=== PATIENT | male | born 1945 | race Caucasian/White ===

== ENCOUNTER → 2017-02-03 | Outpatient (CLI) | payer MEDICARE ==
[~2017-02-03] MED LIST: ASPI-515 PO; AZIT250T89 PO; CARV6.252 PO; CERT400S IM; CHOLACOL PO; DOXE25CA PO; GABA300C10 PO; HYDROCODONE PO; LOSA100T6 PO; METH750T87 PO; METH80VI IM; MULT-516 PO; OCULAR NUTRITION PO; OXYC-229 PO; PANT40TA5 PO; SUPPORT PO; TESTRON PO; VIT D PO; ZOLP10TA5 PO; [UNRECOGNIZED DRUG - OTHER] PO; [UNRECOGNIZED DRUG - OTHER] PO
== END | disposition home or self-care (01) ==
LOC: CFH 13:35
PROVIDERS: ATTEND Internal Medicine
DX: J84.10 Pulmonary fibrosis, unspecified (principal); J98.4 Other disorders of lung; M47.894 Other spondylosis, thoracic region; Z92.25 Personal history of immunosuppression therapy
CPT/HCPCS: 71020

== ENCOUNTER → 2017-04-16 | Outpatient (CLI) | payer MEDICARE | END | disposition home or self-care (01) | LOC: CFH 16:05 | PROVIDERS: ATTEND Internal Medicine | DX: M25.461 Effusion, right knee (principal); M22.41 Chondromalacia patellae, right knee ==

== ENCOUNTER 2017-08-14 19:44 | Inpatient (IN) | payer MEDICARE ==
[~2017-08-14] VITALS: Ht 185.4 cm; Wt 90.0 kg
[~2017-08-14 19:44] MED LIST changes: -ASPI-496 PO; -ATOR20TA9 PO; -CARV3.122 PO; -HYDR-3245 PO; -IRBE150T25 PO; -OMNIPAQUE 350 MG/ML, 100ML BOTTLE ONE; -PRED20TA PO; -RIVA15TA PO; -UBID100C41 PO
[2017-08-14] MEDS ORDERED: SODIUM CHLORIDE FLUSH 10ML SYR IVF ONE (20:00)
[2017-08-14 20:16] LABS: HEMATOCRIT 44.4 % (39.2-51.8); HEMOGLOBIN 15.4 g/dL (13.7-18.0); WHITE BLOOD COUNT 14.6 x10^3/uL (3.4-10)
[2017-08-14 20:25] LABS: BLOOD UREA NITROGEN 16 mg/dL (7-18)
[2017-08-14] MEDS ORDERED: HEPARIN 25,000 UNITS/500ML PMX 500 ML IV PRN ×2 (20:30→23:45)
[2017-08-14] MEDS ORDERED: HEPARIN 5,000 UNITS/ML, 1ML IV ONE (20:30)
[2017-08-14] MEDS ORDERED: HEPARIN 5,000 UNITS/ML, 1ML IV PRN ×2 (20:30→23:45)
[2017-08-14 20:31] LABS: IS PT STATUS REG ER OR PRE ER? YES
[2017-08-14] MEDS ORDERED: ZOLPIDEM 10MG TABLET PO SCH (21:00)
[2017-08-14] MEDS ORDERED: HYDROmorphone 1 MG/ML, 1ML IV ONE (21:30)
[2017-08-14] MEDS ORDERED: ZOLP10TA5 PO (21:51)
[2017-08-14] MEDS ORDERED: MULT-516 PO (21:51)
[2017-08-14] MEDS ORDERED: ATOR20TA9 PO (21:51)
[2017-08-14] MEDS ORDERED: GABA300C10 PO (21:51)
[2017-08-14] MEDS ORDERED: IRBE150T25 PO (21:51)
[2017-08-14] MEDS ORDERED: UBID100C41 PO (21:51)
[2017-08-14] MEDS ORDERED: PRED20TA PO (21:51)
[2017-08-14] MEDS ORDERED: PANT40TA5 PO (21:51)
[2017-08-14] MEDS ORDERED: CARV3.122 PO (21:51)
[2017-08-14] MEDS ORDERED: ASPI-496 PO (21:51)
[2017-08-14] MEDS ORDERED: HYDR-3245 PO (21:51)
[2017-08-14] MEDS ORDERED: LORazepam 2 MG/ML, 1ML IVPush PRN (22:00)
[2017-08-14] MEDS ORDERED: ONDANSETRON 2MG/ML, 2ML IVPush PRN (22:00)
[2017-08-14] MEDS ORDERED: hydrALAzine 20 MG/ML, 1ML IVPush PRN (22:00)
[2017-08-14] MEDS ORDERED: ACETAMINOPHEN 325 MG TABLET PO PRN (22:00)
[2017-08-14] MEDS ORDERED: HYDROmorphone 2 MG/ML, 1ML IVPush PRN (22:00)
[2017-08-14] MEDS ORDERED: HYDROmorphone 1 MG/ML, 1ML ONE (22:07)
[2017-08-14] MEDS ORDERED: HEPARIN 5,000 UNITS/ML, 1ML ONE (22:18)
[2017-08-14] MEDS ORDERED: HEPARIN 25,000 UNITS/500ML PMX 500 ML ONE (22:19)
[2017-08-15] MEDS: HYDROcodone/APAP 5/325 TABLET PO PRN ×5 (00:04→18:48)
[2017-08-15 00:07] VITALS: BP 175/88
[2017-08-15 00:15] VITALS: BP 159/86
[2017-08-15 01:04] VITALS: BP 151/79
[2017-08-15 05:22] LABS: HEMATOCRIT 41.1 % (39.2-51.8); HEMOGLOBIN 13.8 g/dL (13.7-18.0); WHITE BLOOD COUNT 10.3 x10^3/uL (3.4-10)
[2017-08-15] MEDS ORDERED: HYDROcodone/APAP 10/325 MG TABLET PO SCH (06:00)
[2017-08-15 06:56] VITALS: BP 130/75
[2017-08-15] MEDS ORDERED: MULTIVITAMIN 1 TABLET PO SCH (09:00)
[2017-08-15] MEDS ORDERED: GABAPENTIN 300 MG CAPSULE PO SCH (09:00)
[2017-08-15] MEDS ORDERED: IRBESARTAN 150 MG TABLET PO SCH (09:00)
[2017-08-15] MEDS: CARVEDILOL 3.125 MG TABLET PO SCH ×2 (09:48→20:19)
[2017-08-15] MEDS: FAMOTIDINE 20 MG/2 ML IVPush SCH ×2 (09:49→20:19)
[2017-08-15 14:47] VITALS: BP 108/56
[2017-08-15] MEDS ORDERED: RIVA15TA PO (19:29)
[2017-08-15] MEDS ORDERED: RIVAROXABAN 15 MG TABLET PO SCH (19:30)
[2017-08-15 20:16] VITALS: BP 138/68
[2017-08-15] MEDS ORDERED: PANTOPROZOLE 40MG TABLET PO SCH (21:00)
[2017-08-15] MEDS ORDERED: ATORVASTATIN 20 MG TABLET PO SCH (21:00)
[2017-08-15] MEDS ORDERED: ZOLPIDEM 10MG TABLET PO SCH (21:00)
== END 2017-08-15 20:30 | disposition home or self-care (01) | DRG 176 ==
LOC: ED 21:50 → EDIP 22:00 → 4NOR 23:20
PROVIDERS: ADMIT Family Medicine; ATTEND Family Medicine
DX: I26.99 Other pulmonary embolism without acute cor pulmonale (principal); D68.69 Other thrombophilia; M06.9 Rheumatoid arthritis, unspecified; M54.9 Dorsalgia, unspecified; G89.29 Other chronic pain; N40.0 Benign prostatic hyperplasia without lower urinary tract symptoms; E78.5 Hyperlipidemia, unspecified; I10 Essential (primary) hypertension; I25.10 Atherosclerotic heart disease of native coronary artery without angina pectoris; I25.2 Old myocardial infarction; Z95.5 Presence of coronary angioplasty implant and graft; Z88.0 Allergy status to penicillin; Z88.2 Allergy status to sulfonamides; Z88.1 Allergy status to other antibiotic agents; Z88.5 Allergy status to narcotic agent; Z91.048 Other nonmedicinal substance allergy status; M08.20 Juvenile rheumatoid arthritis with systemic onset, unspecified site
CPT/HCPCS: 36415; 80048; 82040; 83880; 84484; 85025; 85520; 85610; 93005; 93970; 96374; 96375; J1170; J1644; J7512; S0028

== ENCOUNTER → 2017-08-14 | Outpatient (CLI) | payer MEDICARE ==
[~2017-08-14] MED LIST changes: +ASPI-496 PO; +ATOR20TA9 PO; +CARV3.122 PO; +HYDR-3245 PO; +IRBE150T25 PO; +OMNIPAQUE 350 MG/ML, 100ML BOTTLE ONE; -OXYC-229 PO; +OXYC-307 PO; +PRED20TA PO; +RIVA15TA PO; +UBID100C41 PO
== END | disposition home or self-care (01) ==
LOC: RAD 14:03
PROVIDERS: ATTEND Internal Medicine
DX: R07.9 Chest pain, unspecified (principal)
CPT/HCPCS: 71275; Q9967

== ENCOUNTER 2017-11-02 15:04 | Emergency (ER) | payer MEDICARE ==
[~2017-11-02] VITALS: Ht 185.4 cm; Wt 99.1 kg
[~2017-11-02 15:04] MED LIST changes: +ASPI-496 PO; +ATOR20TA9 PO; +CARV3.122 PO; +HYDR-3245 PO; +IRBE150T25 PO; +PRED20TA PO; +RIVA15TA PO; +UBID100C41 PO
[2017-11-02] MEDS ORDERED: ASPIRIN 81 MG TABLET CHEW PO ONE (15:30)
[2017-11-02] MEDS ORDERED: SODIUM CHLORIDE FLUSH 10ML SYR IVF ONE (15:30)
[2017-11-02 15:55] LABS: MEAN CORPUSCULAR HEMOGLOBIN 30.2 pg (27.5-34.5); MEAN CORPUSCULAR HGB CONC 33.8 g/dL (33.2-36.2); MEAN CORPUSCULAR VOLUME 89.3 fL (81-97); MEAN PLATELET VOLUME 6.8 fL (7.4-10.4); PLATELET COUNT 319 x10^3/uL (130-400); RED BLOOD COUNT 4.71 x10^6/uL (4.38-5.82); RED CELL DISTRIBUTION WIDTH 15.7 % (9.4-14.8)
[2017-11-02 16:06] LABS: ALANINE AMINOTRANSFERASE 86 U/L (12-78); ANION GAP 12 mmol/L (5-15); CALCIUM 7.8 mg/dL (8.5-10.1); CHLORIDE 101 mmol/L (98-107); CREATININE 1.32 mg/dL (0.7-1.3)
[2017-11-02 16:11] LABS: ALKALINE PHOSPHATASE 89 U/L (45-117); BILIRUBIN,TOTAL 1.1 mg/dL (0.2-1.0); TOTAL PROTEIN 6.4 g/dL (6.4-8.2); TROPONIN I < 0.015 ng/mL (0.000-0.045)
[2017-11-02] MEDS ORDERED: DEXA0.5T PO (16:25)
[2017-11-02] MEDS ORDERED: ALBU18HF INH (16:28)
[2017-11-02 16:30] LABS: MD YES
[2017-11-02 16:31] LABS: BAND#(MANUAL) 0.71 x10^3/uL; BANDS%(MANUAL) 4 % (0-7); LYMPH#(MANUAL) 1.95 x10^3/uL (1-3.4); LYMPHS% (MANUAL) 11 % (22-44); METAMYELOCYTES# (MANUAL) 0.18 x10^3/uL (0-0); METAMYELOCYTES% (MANUAL) 1 % (0-1); MONOS#(MANUAL) 1.24 x10^3/uL (0.3-2.7); MONOS% (MANUAL) 7 % (2-9); SEG#(MANUAL) 13.63 x10^3/uL (1.8-6.8); SEGS% (MANUAL) 77 % (42-75)
[2017-11-02 16:33] LABS: <PLATELET ESTIMATE> ADEQUATE; <PLT MORPHOLOGY> NORMAL PLT MORPH; <RBC MORPHOLOGY> NORMAL
[2017-11-02 16:34] LABS: TOXIC GRAN 1+
[2017-11-02] MEDS ORDERED: ASPIRIN 81 MG TABLET CHEW ONE (16:39)
[2017-11-02 17:38] LABS: MICROSCOPIC NOT IND
[2017-11-02 17:41] LABS: CULTURE INDICATED? NO
[2017-11-02 18:55] VITALS: BP 125/65
== END 2017-11-02 18:57 | disposition home or self-care (01) ==
LOC: ED 16:19
DX: R07.89 Other chest pain (principal); T38.0X5A Adverse effect of glucocorticoids and synthetic analogues, initial encounter; R60.0 Localized edema; I25.2 Old myocardial infarction; I10 Essential (primary) hypertension; Z95.5 Presence of coronary angioplasty implant and graft
CPT/HCPCS: 36415; 71045; 76700; 80053; 81003; 83880; 84484; 85025; 93005; 99285

== ENCOUNTER 2017-11-04 08:57 | Emergency (ER) | payer MEDICARE ==
[~2017-11-04] VITALS: Ht 185.4 cm; Wt 95.9 kg
[~2017-11-04 08:57] MED LIST changes: +ALBU18HF INH; +DEXA0.5T PO
[2017-11-04] MEDS ORDERED: SODIUM CHLORIDE FLUSH 10ML SYR IVF ONE (09:30)
[2017-11-04 09:31] LABS: MEAN CORPUSCULAR HEMOGLOBIN 30.3 pg (27.5-34.5); MEAN CORPUSCULAR VOLUME 89.3 fL (81-97); MEAN PLATELET VOLUME 6.3 fL (7.4-10.4); PLATELET COUNT 246 x10^3/uL (130-400); RED BLOOD COUNT 5.15 x10^6/uL (4.38-5.82); RED CELL DISTRIBUTION WIDTH 15.8 % (9.4-14.8)
[2017-11-04 09:44] LABS: ALANINE AMINOTRANSFERASE 102 U/L (12-78); ALBUMIN 3.1 g/dL (3.4-5.0); ANION GAP 10 mmol/L (5-15); CALCIUM 7.6 mg/dL (8.5-10.1); CHLORIDE 98 mmol/L (98-107); CREATININE 1.11 mg/dL (0.7-1.3)
[2017-11-04 09:48] LABS: ALKALINE PHOSPHATASE 91 U/L (45-117); BILIRUBIN,TOTAL 1.9 mg/dL (0.2-1.0); TOTAL PROTEIN 6.7 g/dL (6.4-8.2); TROPONIN I < 0.015 ng/mL (0.000-0.045)
[2017-11-04 09:52] LABS: BASOPHILS # (AUTO) 0.02 x10^3/uL (0-0.1); BASOPHILS % (AUTO) 0 % (0-1); EOSINOPHILS # (AUTO) 0.26 x10^3/uL (0-0.4); EOSINOPHILS % (AUTO) 2 % (1-7); LYMPHOCYTES # (AUTO) 1.92 x10^3/uL (1-3.4); LYMPHOCYTES % (AUTO) 17 % (22-44); MD SCAN; MONOCYTES # (AUTO) 1.17 x10^3/uL (0.2-0.8); MONOCYTES % (AUTO) 10 % (2-9); NEUTROPHILS # (AUTO) 8.24 x10^3/uL (1.8-6.8); NEUTROPHILS % (AUTO) 71 % (42-75)
[2017-11-04] MEDS ORDERED: methylPREDNISolone SOD SUCC 125 MG/2 ML IVPush SCH (10:30)
[2017-11-04] MEDS ORDERED: CALCIUM CARBONATE 500 MG TABLET PO SCH (10:30)
[2017-11-04] MEDS ORDERED: methylPREDNISolone SOD SUCC 125 MG/2 ML ONE (11:29)
[2017-11-04 12:11] VITALS: BP 115/61
== END 2017-11-04 12:36 | disposition home or self-care (01) ==
LOC: ED 09:29
DX: R06.00 Dyspnea, unspecified (principal); M06.9 Rheumatoid arthritis, unspecified; I11.0 Hypertensive heart disease with heart failure; I48.91 Unspecified atrial fibrillation; I25.2 Old myocardial infarction; Z95.5 Presence of coronary angioplasty implant and graft
CPT/HCPCS: 36415; 71045; 80053; 83880; 84484; 85025; 93005; 96374; 99285; J2930

== ENCOUNTER → 2017-11-16 | Outpatient (CLI) | payer MEDICARE ==
[~2017-11-16] MED LIST changes: +OMNIPAQUE 350 MG/ML, 100ML BOTTLE ONE
== END | disposition home or self-care (01) ==
LOC: CFH 13:02
PROVIDERS: ATTEND Internal Medicine
DX: J98.11 Atelectasis (principal); Z90.49 Acquired absence of other specified parts of digestive tract; Z86.711 Personal history of pulmonary embolism
CPT/HCPCS: 71275; Q9967

== ENCOUNTER 2017-12-22 08:29 | Day surgery (SDC) | payer MEDICARE ==
[~2017-12-22] VITALS: Ht 185.4 cm; Wt 92.7 kg
[~2017-12-22 08:29] MED LIST changes: -OMNIPAQUE 350 MG/ML, 100ML BOTTLE ONE
[2017-12-22] MEDS ORDERED: SODIUM CHLORIDE 0.9% 1,000 ML IV ONE (08:43)
[2017-12-22 08:48] VITALS: BP 153/89
[2017-12-22] MEDS ORDERED: DIPHENHYDRAMINE 50 MG/ML, 1ML IVPush ONE (09:00)
[2017-12-22] MEDS ORDERED: DEXL60CA2 PO (09:10)
[2017-12-22] MEDS ORDERED: IRBE1TAB37 PO (09:10)
[2017-12-22] MEDS ORDERED: METH80VI IM (09:10)
[2017-12-22] MEDS ORDERED: ASPI-621 PO (09:13)
[2017-12-22] MEDS ORDERED: DIPHENHYDRAMINE 50 MG/ML, 1ML ONE (09:22)
[2017-12-22 09:29] LABS: ANION GAP 9 mmol/L (5-15); CALCIUM 8.4 mg/dL (8.5-10.1); CHLORIDE 105 mmol/L (98-107); CREATININE 0.97 mg/dL (0.7-1.3)
[2017-12-22] MEDS ORDERED: FENTANYL PF 100 MCG/2ML ONE ×2 (09:29→10:39)
[2017-12-22] MEDS ORDERED: FENTANYL PF 100 MCG/2ML IVPush PRN (09:30)
[2017-12-22] MEDS ORDERED: LIDOCAINE 2%, 20ML ONE (10:39)
[2017-12-22] MEDS ORDERED: MIDAZOLAM 1 MG/ML, 5ML ONE (10:39)
[2017-12-22] MEDS ORDERED: HEPARIN 1,000 UNITS/ML, 10ML ONE (10:44)
[2017-12-22] MEDS ORDERED: BIVALIRUDIN 250 MG ONE (10:44)
[2017-12-22] MEDS ORDERED: NITROGLYCERIN 5 MG/ML, 10ML ONE (10:44)
[2017-12-22] MEDS ORDERED: VERAPAMIL 2.5 MG/ML, 2ML ONE (10:45)
[2017-12-22] MEDS ORDERED: SODIUM CHLORIDE 0.9% 1,000 ML IV SCH (11:33)
[2017-12-22] MEDS ORDERED: HYDROcodone/APAP 5/325 TABLET PO PRN (12:30)
== END 2017-12-22 16:08 | disposition home or self-care (01) ==
LOC: CACL 08:29 → 5SO 11:38 → CACL 16:08
PROVIDERS: ATTEND Internal Medicine Cardiovascular Disease
DX: R93.1 Abnormal findings on diagnostic imaging of heart and coronary circulation (principal); I10 Essential (primary) hypertension; E78.5 Hyperlipidemia, unspecified; I25.10 Atherosclerotic heart disease of native coronary artery without angina pectoris; K21.9 Gastro-esophageal reflux disease without esophagitis; Z79.82 Long term (current) use of aspirin; Z88.6 Allergy status to analgesic agent; Z88.1 Allergy status to other antibiotic agents; Z88.0 Allergy status to penicillin; Z88.8 Allergy status to other drugs, medicaments and biological substances
CPT/HCPCS: 36415; 80048; 93454; 99156; C1894; J1200; J1644; J2250; J3010; J3490; Q9967; J0583

== ENCOUNTER → 2018-01-18 | Outpatient (CLI) | payer MEDICARE ==
[~2018-01-18] MED LIST changes: +ASPI-621 PO; +DEXL60CA2 PO; +IRBE1TAB37 PO
== END | disposition home or self-care (01) ==
LOC: CFH 15:16
PROVIDERS: ATTEND Internal Medicine
DX: R07.82 Intercostal pain (principal)

== ENCOUNTER → 2018-02-25 | Outpatient (CLI) | payer MEDICARE ==
[~2018-02-25] MED LIST changes: +OMNIPAQUE 350 MG/ML, 100ML BOTTLE ONE
[2018-02-25 14:50] LABS: CREATININE 1.12 mg/dL (0.7-1.3)
== END | disposition home or self-care (01) ==
LOC: RAD 14:11
PROVIDERS: ATTEND Internal Medicine
DX: R10.9 Unspecified abdominal pain (principal); Z87.19 Personal history of other diseases of the digestive system
CPT/HCPCS: 36415; 74170; 82565; Q9967

== ENCOUNTER 2019-08-23 09:32 | Emergency (ER) | payer MEDICARE ==
[~2019-08-23] VITALS: Ht 185.4 cm; Wt 83.1 kg
[~2019-08-23 09:32] MED LIST changes: -ASPI-621 PO; +ASPI81TA45 PO; +ATOR20TA37 PO; -ATOR20TA9 PO; +LOSA100T14 PO; -LOSA100T6 PO; -OMNIPAQUE 350 MG/ML, 100ML BOTTLE ONE
--- NOTE | 2019-08-23 10:06 | NUR ---
pt to ed for nl/v, cough fever x4 days. pt has been on zithromax for 2 days. pt connected to monitors. vss. no coughing or n/v noted at this time. pt states coughing spells are associated with nausea. pt is a poor historian. Dr. Spain to bs for assessment. awaiting orders.
[2019-08-23] MEDS ORDERED: ONDANSETRON 2MG/ML, 2ML ONE (10:27)
[2019-08-23] MEDS ORDERED: SODIUM CHLORIDE FLUSH 10ML SYR IVF ONE (10:30)
[2019-08-23] MEDS ORDERED: SODIUM CHLORIDE 0.9% 1,000ML IVBOLUS ONE ×2 (10:30→11:30)
[2019-08-23] MEDS ORDERED: ONDANSETRON 2MG/ML, 2ML IVPush ONE (10:30)
--- NOTE | 2019-08-23 10:30 | NUR ---
pt resting in room with family at bs. vss. piv established and labs drawn and sent. pt medicated per mar. ivf bolus started. no needs expressed. call light wtihin reach. awaiting xr and lab results.
--- NOTE | 2019-08-23 10:35 | NUR ---
pt to xr.
[2019-08-23 10:44] LABS: BASOPHILS # (AUTO) 0.02 x10^3/uL (0-0.1); BASOPHILS % (AUTO) 0 % (0-1); EOSINOPHILS # (AUTO) 0.07 x10^3/uL (0-0.4); EOSINOPHILS % (AUTO) 1 % (1-7); LYMPHOCYTES % (AUTO) 9 % (22-44); MD NO; MEAN CORPUSCULAR HEMOGLOBIN 29.9 pg (27.5-34.5); MEAN CORPUSCULAR HGB CONC 33.5 g/dL (33.2-36.2); MEAN CORPUSCULAR VOLUME 89.2 fL (81-97); MONOCYTES # (AUTO) 1.05 x10^3/uL (0.2-0.8); MONOCYTES % (AUTO) 9 % (2-9); NEUTROPHILS # (AUTO) 9.31 x10^3/uL (1.8-6.8); NEUTROPHILS % (AUTO) 81 % (42-75); PLATELET COUNT 291 x10^3/uL (130-400); RED BLOOD COUNT 4.75 x10^6/uL (4.38-5.82); RED CELL DISTRIBUTION WIDTH 13.2 % (9.4-14.8)
[2019-08-23 10:46] LABS: ALBUMIN 3.3 g/dL (3.4-5.0); ANION GAP 10 mmol/L (5-15); CALCIUM 8.4 mg/dL (8.5-10.1); CHLORIDE 100 mmol/L (98-107)
[2019-08-23 10:50] LABS: ALANINE AMINOTRANSFERASE 46 U/L (12-78); ALKALINE PHOSPHATASE 162 U/L (45-117); BILIRUBIN,TOTAL 1.3 mg/dL (0.2-1.0); CREATININE 0.89 mg/dL (0.7-1.3); TOTAL PROTEIN 6.8 g/dL (6.4-8.2)
[2019-08-23 10:52] LABS: RAPID INFLUENZA A Negative (Negative); RAPID INFLUENZA B Negative (Negative)
--- NOTE | 2019-08-23 11:17 | NUR ---
pt resting in room. vss. orders received for 2nd liter ivf bolus. starting now.
--- NOTE | 2019-08-23 12:06 | NUR ---
pt resting in room. vss. ivf bolus #[address] [place] to bs to update on poc and results. awaiting dispo.
--- NOTE | 2019-08-23 13:01 | NUR ---
REPORT RECEIVED FROM ROZ NARANJO, ASSUMING CARE OF PT AT THIS TIME.
[2019-08-23 13:30] VITALS: BP 128/88
== END 2019-08-23 13:32 | disposition home or self-care (01) ==
LOC: ED 10:38
DX: R11.2 Nausea with vomiting, unspecified (principal); E86.0 Dehydration; R19.7 Diarrhea, unspecified; R51 Headache; I10 Essential (primary) hypertension; I25.2 Old myocardial infarction; M19.90 Unspecified osteoarthritis, unspecified site
CPT/HCPCS: 36415; 74022; 80053; 83690; 85025; 87400; 93005; 96361; 96374; 99284; J2405; J7030

== ENCOUNTER → 2020-10-30 | Outpatient (CLI) | payer MEDICARE, BC ==
[~2020-10-30] MED LIST changes: -ASPI-515 PO; +ASPI-963 PO; -HYDR-3245 PO; +HYDR1TAB53 PO; -IRBE150T25 PO; +IRBE150T9 PO; -OXYC-307 PO; +OXYC-380 PO; -PANT40TA5 PO; +PANT40TA6 PO
== END | disposition home or self-care (01) ==
LOC: PETCFH 09:39
PROVIDERS: ATTEND Otolaryngology
DX: C76.0 Malignant neoplasm of head, face and neck (principal); J84.10 Pulmonary fibrosis, unspecified; R91.1 Solitary pulmonary nodule; K57.30 Diverticulosis of large intestine without perforation or abscess without bleeding; R91.8 Other nonspecific abnormal finding of lung field
CPT/HCPCS: 78815; A9552

== ENCOUNTER 2020-11-14 09:17 | Day surgery (SDC) | payer MEDICARE, OTHER ==
[2020-11-12 11:46] LABS: ALANINE AMINOTRANSFERASE 20 U/L (12-78); ALBUMIN 3.9 g/dL (3.4-5.0); ANION GAP 10 mmol/L (5-15); CALCIUM 8.7 mg/dL (8.5-10.1); CHLORIDE 110 mmol/L (98-107); CREATININE 1.04 mg/dL (0.7-1.3)
[2020-11-12 11:48] LABS: ALKALINE PHOSPHATASE 115 U/L (45-117); TOTAL PROTEIN 7.3 g/dL (6.4-8.2)
[~2020-11-14] VITALS: Ht 188 cm; Wt 85.7 kg
[~2020-11-14 09:17] MED LIST changes: +A/C/1TAB3 PO; +Cognium PO; +HYDR10CA4 PO; +HYDR200T72 PO; +OMEP40CA42 PO; +SENN1TAB67 PO; +SUPER C PO; +ZOLP10TA PO; +[UNRECOGNIZED DRUG - OTHER] PO; +[UNRECOGNIZED DRUG - OTHER] PO
[2020-11-14 09:50] VITALS: BP 138/74
[2020-11-14] MEDS ORDERED: CHLORHEXIDINE 15 ML UDC MM ONE (10:00)
[2020-11-14] MEDS ORDERED: LACTATED RINGERS 1,000 ML IV SCH (10:00)
[2020-11-14] MEDS ORDERED: EPINEPHRINE 1 MG/ML, 1ML ONE (10:32)
[2020-11-14] MEDS ORDERED: BACITRACIN OINT 500U/GM, 15 GM ONE (10:32)
[2020-11-14] MEDS ORDERED: LIDOCAINE/PF 1%, 30ML ONE (10:32)
[2020-11-14] MEDS ORDERED: MIDAZOLAM 1 MG/ML, 2ML ONE (12:40)
[2020-11-14] MEDS ORDERED: FENTANYL PF 250 MCG/5ML ONE (12:40)
[2020-11-14] MEDS ORDERED: PROPOFOL 50 ML ONE (12:40)
[2020-11-14] MEDS ORDERED: ROCURONIUM 10MG/ML,5ML ONE (12:41)
[2020-11-14] MEDS ORDERED: CEFAZOLIN 1,000 MG ONE ×2 (13:03)
[2020-11-14] MEDS ORDERED: EPHEDRINE 50 MG/ML, 1ML ONE (13:04)
[2020-11-14] MEDS ORDERED: ONDANSETRON 2MG/ML, 2ML ONE (13:13)
[2020-11-14] MEDS ORDERED: SUGAMMADEX 200 MG/2 ML IVPush ONE (13:15)
[2020-11-14] MEDS ORDERED: FENTANYL PF 100 MCG/2ML ONE (13:53)
[2020-11-14] MEDS ORDERED: OXYcodone 5 MG/5 ML ORAL.SOL UDC PO PRN (14:00)
[2020-11-14] MEDS ORDERED: LABETALOL 5MG/ML, 20ML IV PRN (14:00)
[2020-11-14] MEDS ORDERED: FENTANYL PF 100 MCG/2ML IV PRN (14:00)
[2020-11-14] MEDS ORDERED: MIDAZOLAM 1 MG/ML, 2ML IV PRN (14:00)
[2020-11-14] MEDS ORDERED: ONDANSETRON 2MG/ML, 2ML IVPush PRN (14:00)
[2020-11-14] MEDS ORDERED: ACETAMINOPHEN 325 MG TABLET PO PRN (14:00)
[2020-11-14] MEDS ORDERED: PROMETHAZINE 25 MG/ML, 1ML IVPush PRN (14:00)
[2020-11-14] MEDS ORDERED: HYDROmorphone 1 MG/ML, 1ML INJ IVPush PRN (14:00)
[2020-11-14] MEDS ORDERED: hydrALAzine 20 MG/ML, 1ML IV PRN (14:00)
== END 2020-11-14 16:00 | disposition home or self-care (01) ==
LOC: OUT 09:17
PROVIDERS: ATTEND Otolaryngology
DX: R22.1 Localized swelling, mass and lump, neck (principal); I25.10 Atherosclerotic heart disease of native coronary artery without angina pectoris; Z20.822 Contact with and (suspected) exposure to COVID-19; Z79.899 Other long term (current) drug therapy; Z88.0 Allergy status to penicillin; Z95.5 Presence of coronary angioplasty implant and graft
CPT/HCPCS: 21556; 36415; 80053; 87635; 88184; 88185; 88305; 93005; J0171; J0690; J2250; J2405; J2704; J3010; J7120; 88323; 88341; 88342; 88365

== ENCOUNTER 2021-03-22 14:35 | Outpatient (CLI) | payer MEDICARE, OTHER ==
[~2021-03-22 14:35] MED LIST changes: -OMEP40CA42 PO; +OMEP40CA8 PO; -OXYC-380 PO; +OXYC-501 PO
[2021-03-22] MEDS ORDERED: OMNIPAQUE 350 MG/ML, 100ML BOTTLE ONE (15:36)
== END 2021-03-22 23:59 | disposition home or self-care (01) ==
LOC: CFH 14:35
PROVIDERS: ATTEND Internal Medicine Hematology & Oncology
DX: C77.0 Secondary and unspecified malignant neoplasm of lymph nodes of head, face and neck (principal); R91.1 Solitary pulmonary nodule; K11.8 Other diseases of salivary glands; D37.030 Neoplasm of uncertain behavior of the parotid salivary glands; M47.812 Spondylosis without myelopathy or radiculopathy, cervical region
CPT/HCPCS: 70491; 71260; Q9967

== ENCOUNTER 2021-04-04 08:56 | Outpatient (CLI) | payer MEDICARE, OTHER ==
[~2021-04-04 08:56] MED LIST changes: +OXYC-380 PO; -OXYC-501 PO
[2021-04-04] MEDS ORDERED: GADOTERATE 10 MMOL/20ML SYR ONE (17:45)
== END 2021-04-04 23:59 | disposition home or self-care (01) ==
LOC: RAD 08:56
PROVIDERS: ATTEND Nurse Practitioner Family
DX: M51.34 Other intervertebral disc degeneration, thoracic region (principal); M25.78 Osteophyte, vertebrae; G81.91 Hemiplegia, unspecified affecting right dominant side; M50.122 Cervical disc disorder at C5-C6 level with radiculopathy; M62.81 Muscle weakness (generalized)
CPT/HCPCS: 72156; 72157; 72158; A9575

== ENCOUNTER 2021-05-23 12:09 | Outpatient (CLI) | payer MEDICARE, OTHER | END 2021-05-23 23:59 | disposition home or self-care (01) | LOC: RAD 12:09 | PROVIDERS: ATTEND Neurological Surgery | DX: M50.322 Other cervical disc degeneration at C5-C6 level (principal); M47.812 Spondylosis without myelopathy or radiculopathy, cervical region; M48.02 Spinal stenosis, cervical region; M25.78 Osteophyte, vertebrae | CPT/HCPCS: 72050 ==

== ENCOUNTER 2021-06-07 10:24 | Outpatient (CLI) | payer MEDICARE, OTHER ==
[~2021-06-07 10:24] MED LIST changes: -OXYC-380 PO; +OXYC-501 PO
== END 2021-06-07 23:59 | disposition home or self-care (01) ==
LOC: STAR 10:24
PROVIDERS: ATTEND Anesthesiology
DX: Z01.818 Encounter for other preprocedural examination (principal); Z01.812 Encounter for preprocedural laboratory examination; Z01.89 Encounter for other specified special examinations; R79.1 Abnormal coagulation profile
CPT/HCPCS: 93005